=== PATIENT | female | born 1980 | race Caucasian/White ===

== ENCOUNTER 2019-07-30 13:03 | Emergency (ER) | payer OTHER, SELFPAY ==
[2019-07-30 13:05] VITALS: BP 143/77; PULSE 80; RESP 19; TEMP 36.6; O2SAT 100; BMI 28.0
--- NOTE | 2019-07-30 13:46 | HMH.EDUTC ---
[facility] Disposition Clinical Impression: Laceration Disposition: Home, Self-Care Condition on Discharge: Good Instructions: How to Care for a Laceration After Repair, DI for Laceration Repair -- Simple, DI for Laceration Repair -- Finger Additional Instructions: You have required stitches today. Please read the following instructions so you know how to care for them: 1. Keep wound area dry for the first 24 hours. 2 May clean gently with mild soap and water, after 48 hours to prevent crusting over suture knots. 3. You may shower if your provider gives permission but do not take a bath until the skin is healed.. 4. Never leave a wet dressing or Band-Aid on your stitches as this allows bacteria to reach the area and may cause infection. Band-aids can cause the wound to sweat and not recommended to wear for long periods of time Watch for signs of infection: Increasing redness, tenderness or warmth around the suture site Unusual swelling around the site Appearance of pus around each suture or any red streaks Fever If you develop any of the above signs or symptoms of infection, Follow up with Family Physician immediately 5. Suture removal in __10-14__days 6. Return to [facility] or follow up with family doctor for removal. This can be done by any medical provider during regular hours on Thursday through Thursday, by appointment. Referrals: Livia Mathis PA [Primary Care Provider] - As needed Time of Disposition: 13:51 Medical Decision Making - Onel Inquiry Pt receiving controlled substance: No Onel was queried for this patient: No Vital Signs: 07/30/19 13:05 07/30/19 14:07 Temperature 97.8 F 97.8 F Temperature Source Oral Oral Pulse Rate 80 Pulse Rate [Radial] 80 Respiratory Rate 19 19 Blood Pressure 143/77 H Blood Pressure [Right Arm] 143/77 H Blood Pressure Mean [Right Arm] 99 Blood Pressure Source Automatic Cuff Blood Pressure Source [Right Arm] Automatic Cuff Blood Pressure Position Sitting Blood Pressure Position [Right Arm] Sitting 02 Sat by Pulse Oximetry 100 Oxygen Delivery Method Room Air Room Air Orders (Tests/Meds): ED MEDICATIONS Discontinued Medications Generic Name Dose Route Start Last Admin Trade Name Freq PRN Reason Stop Dose Admin Tetanus/Reduced Diphtheria/Acell Pertussis 0.5 ml 07/30/19 13:45 07/30/19 13:55 Adacel Tdap 0.5ml Syringe IM 07/30/19 13:46 0.5 ml .ONCE ONE Administration [facility] HPI - General Stated complaint: AO 07/30/19 12:30 laceration left index finger Time Seen by Provider: 07/30/19 13:05 Mode of Arrival: Ambulatory Source of Information: Patient Limitations: No Limitations Description of Symptoms (Recalled from Triage Doc. by RN): cut finger HEENT Symptoms (Recalled from RN notes): No Resp Symptoms (Recalled from RN notes): No Skin Symptoms (Recalled from RN notes): Yes MS Symptoms (Recalled from RN notes): No Functional Status (Recalled from RN notes): wnl - History of Present Illness Provider Complaint: Patient states that she was opening a can a tuna when she accidently cut her left index finger with the sharp metal State that it was bleeding a lot and she was finally able to get the bleeding stopped and realized that she may need a few stiches to close it - Related Data Previous Rx's Medication Instructions Recorded rikvrsijoseswxh-oosugqonmixtytp-JH 5 - 10 ml PO Q6H PRN #180 ml 04/20/18 2 mg-30 mg-10 mg/5 mL oral syrup levofloxacin 500 mg tablet 500 mg PO Q24H 10 Days #10 tab 04/20/18 prednisone 20 mg tablet 20 mg PO BID #10 tab 04/20/18 ondansetron 8 mg disintegrating 8 mg PO Q8H PRN 5 Days #30 tab 01/25/19 tablet Allergies Allergy/AdvReac Type Severity Reaction Status Date / Time penicillin V Allergy Unknown UNKNOWN Verified 04/20/18 10:01 REACTION- OK WITH KEFLEX - Worker's Comp Is this a Worker's Comp case?: No [facility] History - Hepatitis A Screen Drug use history?: No High risk sex
[2019-07-30 14:07] VITALS: BP 143/77; PULSE 80; RESP 19; TEMP 36.6; O2SAT 100
== END 2019-07-30 14:07 | disposition home or self-care (01) ==
LOC: UTC 14:44
PROVIDERS: Emergency Provider Nurse Practitioner; PCP Physician Assistant
DX: S61.211A Laceration without foreign body of left index finger without damage to nail, initial encounter (principal); W26.8XXA Contact with other sharp object(s), not elsewhere classified, initial encounter; Y92.010 Kitchen of single-family (private) house as the place of occurrence of the external cause; Z23 Encounter for immunization; Z88.0 Allergy status to penicillin; F17.210 Nicotine dependence, cigarettes, uncomplicated
CPT/HCPCS: 12001; 90471; 90715; 99201

== ENCOUNTER 2019-08-11 18:52 | Emergency (ER) | payer BC, SELFPAY ==
[2019-08-11 19:03] VITALS: BP 132/88; PULSE 84; RESP 16; TEMP 37.2; O2SAT 84; BMI 27.3
--- NOTE | 2019-08-11 19:14 | CT_ITS ---
PROCEDURE: CT ABDOMEN PELVIS W CON CLINICAL INDICATION: LLQ pain Left lower quadrant pain with vomiting, diarrhea, rectal bleeding COMPARISON: No exams were available for comparison TECHNIQUE: IV Contrast: 75ML OPTIRAY 350 Oral Contrast none Axial images obtained with sagittal and coronal reformats. All CT scans at the facility use one or more dose reduction, viz: automated exposure control, ma/kV adjustment per patient size (including targeted exams where dose is matched to indication, i.e. head), or iterative reconstruction technique. FINDINGS: LOWER THORAX: Mild atelectatic changes are present in the left lung base. ABDOMEN & PELVIS: The liver, gallbladder, spleen, adrenal glands, and pancreas have an unremarkable appearance. No renal or ureteral calculi. There is mild prominence of the left renal pelvis. No definite ureteral calculus. No evidence of appendicitis or intestinal obstruction or free air. There is thickening of the descending colon with some minimal stranding of the pericolic fat best seen on series 3, image 80 suggesting mild colitis. The uterus has a somewhat bulky appearance and is retroverted with a Essure device is noted bilaterally. IMPRESSION: Colitis of descending colon Dictated by: Britton Tapia MD 08/12/2019 06:01 Electronically signed by Britton Tapia MD in [place] 08/12/2019 06:01
[2019-08-11 19:21] LABS: Microscopic, Urine URINE MICROSCOPIC (MICROSCOPIC)
[2019-08-11 19:24] LABS: Basophils # 0.1 K/mm3 (0-0.2); Basophils % 0.6 % (0.1-2.0); Eosinophils # 0.2 K/mm3 (0.0-0.4); Eosinophils % 1.7 % (0.1-12.0); Hematocrit 47.2 % (37.0-47.0); Hemoglobin 15.4 g/dL (12.2-16.2); Lymphocytes # 2.2 K/mm3 (0.7-4.5); Lymphocytes % 19.6 % (10-50); Mean Corpuscular HGB Conc 32.7 g/dL (31.8-35.4); Mean Corpuscular Hemoglobin 27.9 pg (27.0-31.2); Mean Corpuscular Volume 85.3 fl (81-99); Monocytes # 0.7 K/mm3 (0.1-1.0); Monocytes % 6.2 % (1.7-9.3); Neutrophils # 8.2 K/mm3 (1.8-7.8); Neutrophils % 72.1 % (37.0-80.0); Platelet Count 406 K/mm3 (142-424); Red Blood Count 5.53 M/mm3 (4.20-5.40); White Blood Count 11.4 K/mm3 (4.8-10.8)
--- NOTE | 2019-08-11 19:26 | HMH.EDABDPAI ---
ED Disposition Condition on Discharge: Good - Critical Care Critical Care Time: No <Robbie Ramirez - Last Filed: 08/11/19 19:41> <Leonardo Fernandez - Last Filed: 08/11/19 20:33> Clinical Impression: Gastroenteritis Abdominal pain Qualifiers: Abdominal location: generalized Qualified Code(s): R10.84 - Generalized abdominal pain Disposition: Home, Self-Care Instructions: DI for Acute Abdomen Referrals: Livia Mathis PA [Primary Care Provider] - Attestation: On 08/11/19, the high probability of a clinically significant, sudden or life threatening deterioration of the following system(s) required my full and direct attention, intervention and personal management. The time I documented below is in addition to time spent performing reported procedures but includes the following listed in this critical care notation. Medical Decision Making - Medical Records Medical records reviewed: Yes: I reviewed the patient's medical records. - Onel Inquiry Pt receiving controlled substance: No - Lab Data Result diagrams: 08/11/19 19:08 08/11/19 19:08 <Robbie Ramirez - Last Filed: 08/11/19 19:41> - Lab Data Lab results reviewed: Yes: I reviewed the patient's lab results. Result diagrams: 08/11/19 19:08 08/11/19 19:08 - CT Data CT Scan: Abdomen, Pelvis Time Received: 20:[address] Reviewed: Yes: I have viewed the radiologist's interpretation Preliminary Findings: Normal/NAD <Leonardo Fernandez - Last Filed: 08/11/19 20:33> Vital Signs: 08/11/19 19:03 08/11/19 20:08 Temperature 98.9 F 98.1 F Temperature Source Oral Oral Pulse Rate [Right] 84 66 Respiratory Rate 16 16 Blood Pressure [Right Arm] 132/88 107/64 L Blood Pressure Mean [Right Arm] 102 78 Blood Pressure Source [Right Arm] Automatic Cuff Blood Pressure Position [Right Arm] Supine 02 Sat by Pulse Oximetry 84 L 99 Oxygen Delivery Method Room Air Room Air - Lab Data Lab Results 08/11/19 19:08: WBC 11.4 H, RBC 5.53 H, Hgb 15.4, Hct 47.2 H, MCV 85.3, MCH 27.9, MCHC 32.7, RDW 14.0, Plt Count 406, MPV 8.0, Neut % (Auto) 72.1, Lymph % (Auto) 19.6, [place] % (Auto) 6.2, Eos % (Auto) 1.7, Baso % (Auto) 0.6, Neut # (Auto) 8.2 H, Lymph # (Auto) 2.2, [place] # (Auto) 0.7, Eos # (Auto) 0.2, Baso # (Auto) 0.1, ESR 8 08/11/19 19:08: Sodium 139, Potassium 3.6, Chloride 102, Carbon Dioxide 29, Anion Gap 11.6, BUN 9, Creatinine 0.70, Estimated Creat Clear 134, Estimated GFR 93, Est GFR ( Amer) 112, Glucose 134 H, Calcium 9.7, Total Bilirubin 0.5, AST 24, ALT 28, Alkaline Phosphatase 62, C-Reactive Protein 4.8 H, Total Protein 7.4, Albumin 4.5, Globulin 2.9, Albumin/Globulin Ratio 1.6, Amylase 84, Lipase 120 08/11/19 19:14: Urine Color Yellow, Urine Appearance Clear, Urine pH 6.0, Ur Specific [place] >= 1.030, Urine Protein Negative, Urine Glucose (UA) Negative, Urine Ketones Negative, Urine Blood 1+, Urine Nitrate Negative, Urine Bilirubin Negative, Urine Urobilinogen 0.2, Ur Leukocyte Esterase Negative, Urine RBC Occasional, Urine WBC Occasional, Ur Squamous Epith Cells Occasional, Urine Bacteria Trace 08/11/19 19:14: Stool Occult Blood Positive A 08/11/19 19:14: Urine HCG, Qual Negative Orders (Tests/Meds): ED MEDICATIONS Generic Name Dose Route Start Last Admin Trade Name Freq PRN Reason Stop Dose Admin Sodium Chloride 1,000 mls @ 999 mls/hr 08/11/19 19:15 08/11/19 19:37 Sod Chlor 0.9% 1000ml Bag IV 08/11/19 20:15 999 mls/hr .Q1H1M RANJIT Administration Sodium Chloride 8 ml 08/11/19 19:14 08/11/19 19:38 Sodium Chloride 0.9% 10ml Vial IV 09/10/19 19:13 8 ml NEEDED PRN Administration dilute pepcid Discontinued Medications Generic Name Dose Route Start Last Admin Trade Name Freq PRN Reason Stop Dose Admin Famotidine 20 mg 05/14/20 19:14 08/11/19 19:38 Pepcid 20mg/2ml Vial IV 08/11/19 19:15 20 mg ONCE ONE Administration Ioversol 75 ml 08/11/19 20:02 08/11/19 20:03 Rad-Optiray 350 100ml Vial
[2019-08-11 19:27] LABS: Chloride 102 mmol/L (98-107)
[2019-08-11 19:28] LABS: Potassium 3.6 mmoL/L (3.5-5.1); Sodium 139 mmol/L (136-145)
[2019-08-11 19:30] LABS: Amylase 84 U/L (30-110); Blood Urea Nitrogen 9 mg/dl (7-17); Creatinine Clearance Estimated 134 mL/min (50-200); Estimated Glomerular Filt Rate 93 ml/min (>60); GFR (African American) 112 ML/MIN (>60)
[2019-08-11 19:31] LABS: Alanine Aminotransferase 28 U/L (12-78); Albumin Level 4.5 g/dl (3.5-5.0); Albumin/Globulin Ratio 1.6 (1.1-1.8); Alkaline Phosphatase 62 U/L (38-126); Anion Gap 11.6 mEq/L (5-15); Aspartate Amino Transferase 24 U/L (14-36); Bilirubin,Total 0.5 mg/dl (0.2-1.3); Calcium 9.7 mg/dl (8.4-10.2); Carbon Dioxide 29 mmol/L (22.0-30.0); Globulin 2.9 g/dL (1.3-3.2); Glucose 134 mg/dl (74-100); Lipase 120 U/L (23-300); Total Protein,Serum 7.4 g/dl (6.3-8.2)
[2019-08-11 19:33] LABS: Occult Blood,Stool Positive (Negative); Urine Pregnancy, HCG Qual. Negative (Negative)
[2019-08-11 19:36] LABS: C-Reactive Protein 4.8 mg/L (0-4)
[2019-08-11 19:36] LABS: Appearance,Urine CLEAR (Clear); Bilirubin,Urine Negative (Negative); Blood, Urine 1+ (Negative); Color,Urine YELLOW (Yellow); Glucose,Urine (UA) Negative (Negative); Ketones,Urine Negative (Negative); Leukocyte Esterase,Urine Negative (Negative); Nitrate,Urine Negative (Negative); Protein,Urine Negative (Negative); Specific Gravity, Urine >= 1.030 (1.005-1.030); Urobilinogen,Urine 0.2 EU/dl (0.2)
[2019-08-11 19:45] LABS: Bacteria,Urine Trace /lpf; RBC,Urine Occasional #/hpf (0-3); Squamous Epithelial Cell,Urine Occasional #/hpf (0-5); WBC,Urine Occasional #/hpf (0-3)
[2019-08-11 19:47] LABS: Erythrocyte Sedimentation Rate 8 mm/hr (0-20)
--- NOTE | 2019-08-11 20:05 | PC.NURSE ---
pt back from ct
[2019-08-11 20:08] VITALS: BP 107/64; PULSE 66; RESP 16; TEMP 36.7; O2SAT 99
[2019-08-11 20:30] VITALS: BP 91/54; PULSE 61; RESP 14; O2SAT 98
[2019-08-11 20:39] VITALS: BP 107/74; PULSE 70; RESP 16; TEMP 36.6; O2SAT 97
[2019-08-11 20:41] VITALS: BP 107/74; PULSE 70; RESP 16; TEMP 36.6; O2SAT 97
[2019-08-12 21:11] LABS: Adenovirus F 40/41, stool Not Detected (NotDetected); Astrovirus Not Detected (NotDetected); Campylobacter Not Detected (NotDetected); Clostridium Difficile A/B, PCR Not Detected (NotDetected); Cryptosporidium Not Detected (NotDetected); Cyclospora Cayetanesis Not Detected (NotDetected); Entamoeba histolytica Not Detected (NotDetected); Enteroaggregative E coli Not Detected (NotDetected); Enteropathogenic E coli Not Detected (NotDetected); Enterotoxigenic E coli Not Detected (NotDetected); Giardia lamblia Not Detected (NotDetected); Norovirus Not Detected (NotDetected); Plesimonas Shigalloides, PCR Not Detected (NotDetected); Rotavirus A Not Detected (NotDetected); Salmonella, PCR Not Detected (NotDetected); Sapovirus Not Detected (NotDetected); Shiga-like toxin E coli Not Detected (NotDetected); Shigella Enterovasive E coli Not Detected (NotDetected); Vibrio Cholerae Not Detected (NotDetected); Vibrio, PCR Not Detected (NotDetected); Yersinia Entercolitica, PCR Not Detected (NotDetected)
== END 2019-08-11 20:45 | disposition home or self-care (01) ==
PROVIDERS: Emergency Medicine; Emergency Provider Family Medicine; PCP Physician Assistant
DX: K52.9 Noninfective gastroenteritis and colitis, unspecified (principal); R10.84 Generalized abdominal pain; F17.210 Nicotine dependence, cigarettes, uncomplicated
CPT/HCPCS: 74177; 80053; 81001; 81025; 82150; 82272; 83690; 85025; 85651; 86140; 87507; 96365; 96375; 99284; G0328; J2405; Q9967

== ENCOUNTER → 2019-08-12 20:59 | Outpatient (CLI) | payer BC, SELFPAY | PROVIDERS: PCP Emergency Medicine; Visit Provider Emergency Medicine | DX: K92.1 Melena (principal) ==

== ENCOUNTER → 2020-01-09 15:11 | Outpatient (CLI) | payer BC, SELFPAY ==
[2020-01-09 16:36] LABS: Amphetamine/Metha Screen,Urine Negative ng/ml (<1000); Benzodiazepines Screen,Urine Negative ng/ml (<200)
[2020-01-09 16:37] LABS: Barbiturates Screen,Urine Negative ng/ml (<200)
[2020-01-09 16:38] LABS: Cannabinoid Screen,Urine Negative ng/ml (<50); Cocaine Screen,Urine Negative ng/ml (<300)
[2020-01-09 16:39] LABS: Methadone Screen,Urine Negative ng/ml (<300)
[2020-01-09 16:40] LABS: Opiate Screen,Urine Negative ng/ml (<300); Phencyclidine Screen,Urine Negative ng/ml (<25)
== END ==
PROVIDERS: Visit Provider Physician Assistant
DX: Z00.00 Encounter for general adult medical examination without abnormal findings (principal)
CPT/HCPCS: 80305

== ENCOUNTER → 2020-01-21 12:53 | Outpatient (CLI) | payer BC, SELFPAY ==
[2020-01-21 23:30] LABS: Adenovirus,PCR Not Detected (NotDetected); Bordetella Pertussis Not Detected (NotDetected); Chlamydophila Pneumoniae, PCR Not Detected (NotDetected); Coronavirus 229E Not Detected (NotDetected); Coronavirus NL63 Not Detected (NotDetected); Coronavirus OC43 Not Detected (NotDetected); Coronovirus HKU1,PCR Not Detected (NotDetected); Human Metapneumovirus Not Detected (NotDetected); Influenza A, PCR Not Detected (NotDetected); Influenza AH1, 2009 Not Detected (NotDetected); Influenza AH1, PCR Not Detected (NotDetected); Influenza AH3,PCR Not Detected (NotDetected); Influenza B, PCR Not Detected (NotDetected); Mycoplasma Pneumoniae, PCR Not Detected (NotDetected); Parainfluenza 1, PCR Not Detected (NotDetected); Parainfluenza 2, PCR Not Detected (NotDetected); Parainfluenza 3, PCR Not Detected (NotDetected); Parainfluenza 4, PCR Not Detected (NotDetected); Respiratory Syncytial Virus Not Detected (NotDetected); Rhinovirus/Enterovirus Not Detected (NotDetected)
[2020-01-22 02:42] LABS: Coronavirus 19, PCR Detected (NotDetected)
== END ==
PROVIDERS: PCP Physician Assistant; Visit Provider Physician Assistant
DX: Z20.828 Contact with and (suspected) exposure to other viral communicable diseases (principal); U07.1 COVID-19
CPT/HCPCS: 87581; 87633; 87798; U0003

== ENCOUNTER → 2020-07-30 14:50 | Outpatient (CLI) | payer BC, SELFPAY ==
[2020-07-30 17:11] LABS: Hemoglobin A1C 5.5 % (4.0-6.0)
== END ==
PROVIDERS: Visit Provider Physician Assistant
DX: R73.09 Other abnormal glucose (principal)
CPT/HCPCS: 83036

== ENCOUNTER 2020-08-20 08:30 | Emergency (ER) | payer BC, SELFPAY ==
[2020-08-20 08:30] VITALS: BP 140/96; PULSE 82; RESP 18; TEMP 36.5; O2SAT 97; BMI 26.6
--- NOTE | 2020-08-20 08:39 | CT_ITS ---
PROCEDURE: CT ABDOMEN PELVIS WO CON CLINICAL INDICATION: flank pain Right flank pain COMPARISON: CT CT ABDOMEN PELVIS W CON from 08/11/2019 TECHNIQUE: Axial images obtained with sagittal and coronal reformats. All CT scans at the facility use one or more dose reduction, viz: automated exposure control, ma/kV adjustment per patient size (including targeted exams where dose is matched to indication, i.e. head), or iterative reconstruction technique. FINDINGS: LOWER THORAX: No acute finding ABDOMEN & PELVIS: The liver, spleen, adrenal glands, and pancreas have an unremarkable unenhanced appearance. No radiopaque gallstones. No renal calculi are evident. A small calcific density is present in the left aspect of the urinary bladder measuring approximately 3 mm. This may be due to a recently passed ureteral stone. There are left parapelvic renal cysts present. No intestinal obstruction or free air. No evidence of appendicitis. There is a tiny umbilical hernia containing fat. There are few colonic diverticula but no evidence of diverticulitis. Bilateral Essure devices are present. The uterus is retroverted. No acute bony findings. There are few scattered small mesenteric lymph nodes which are nonspecific. IMPRESSION: 3 mm stone is present in the left aspect of the urinary bladder and may be related to recently passed stone. No ureteral calculi or hydronephrosis apparent. Dictated by: Britton Tapia MD 08/20/2020 09:24 Britton Tapia MD in [place] 08/20/2020 09:24
--- NOTE | 2020-08-20 08:47 | PC.NURSE ---
pt going to rad.
[2020-08-20 08:50] LABS: Basophils # 0.1 K/mm3 (0-0.2); Basophils % 1.2 % (0.1-2.0); Eosinophils # 0.6 K/mm3 (0.0-0.4); Eosinophils % 6.9 % (0.1-12.0); Hematocrit 42.9 % (37.0-47.0); Hemoglobin 14.3 g/dL (12.2-16.2); Lymphocytes # 2.5 K/mm3 (0.7-4.5); Mean Corpuscular HGB Conc 33.4 g/dL (31.8-35.4); Mean Platelet Volume 8.3 fl (7.4-10.4); Monocytes # 0.5 K/mm3 (0.1-1.0); Neutrophils # 4.4 K/mm3 (1.8-7.8); Platelet Count 377 K/mm3 (142-424); Red Cell Distribution Width 14.3 % (11.5-17.5); White Blood Count 8.1 K/mm3 (4.8-10.8)
[2020-08-20 08:51] LABS: Chloride 107 mmol/L (98-107); Potassium 4.3 mmoL/L (3.5-5.1); Sodium 139 mmol/L (136-145)
[2020-08-20 08:53] LABS: Blood Urea Nitrogen 14 mg/dl (7-17); Creatinine Clearance Estimated 150 mL/min (50-200); Estimated Glomerular Filt Rate 110 ml/min (>60); GFR (African American) 133 ML/MIN (>60)
[2020-08-20 08:54] LABS: Alanine Aminotransferase 20 U/L (12-78); Albumin Level 4.4 g/dl (3.5-5.0); Albumin/Globulin Ratio 1.6 (1.1-1.8); Alkaline Phosphatase 70 U/L (38-126); Anion Gap 12.3 mEq/L (5-15); Aspartate Amino Transferase 30 U/L (14-36); Bilirubin,Total 0.6 mg/dl (0.2-1.3); Calcium 9.1 mg/dl (8.4-10.2); Carbon Dioxide 24 mmol/L (22.0-30.0); Globulin 2.7 g/dL (1.3-3.2); Glucose 186 mg/dl (74-100); Lipase 126 U/L (23-300); Total Protein,Serum 7.1 g/dl (6.3-8.2)
--- NOTE | 2020-08-20 09:07 | PC.NURSE ---
pt returning from rad. Pt taken to restroom at this time.
[2020-08-20 09:11] VITALS: BP 124/78; PULSE 68; O2SAT 99
[2020-08-20 09:15] VITALS: BP 122/84; PULSE 70; RESP 18; O2SAT 100
[2020-08-20 09:17] LABS: Microscopic, Urine URINE MICROSCOPIC (MICROSCOPIC)
[2020-08-20 09:23] LABS: Appearance,Urine CLEAR (Clear); Bilirubin,Urine Negative (Negative); Blood, Urine 3+ (Negative); Color,Urine YELLOW (Yellow); Glucose,Urine (UA) Negative (Negative); Ketones,Urine TRACE (Negative); Leukocyte Esterase,Urine Negative (Negative); Nitrate,Urine Negative (Negative); PH,Urine 6.5 (5.0-8.5); Protein,Urine Negative (Negative); Specific Gravity, Urine 1.025 (1.005-1.030); Urobilinogen,Urine 0.2 EU/dl (0.2)
[2020-08-20 09:30] VITALS: BP 118/89; PULSE 71; RESP 18; O2SAT 99
--- NOTE | 2020-08-20 09:31 | HMH.EDGENADL ---
ED Disposition Clinical Impression: Kidney stone Disposition: Home, Self-Care Condition on Discharge: Good Instructions: DI for Kidney Stones Prescriptions: Hydrocod/Acet 5/325 mg [[place] 5/325mg tablet] 1 tab PO Q6HP PRN #5 tab PRN Reason: Moderate Pain Transmission Status: Sent to [facility] Tamsulosin HCl [Flomax 0.4mg capsule] 0.4 mg PO HS #5 cap Transmission Status: Pending to [facility] Ondansetron [Zofran 4mg ODT] 4 mg PO BIDP PRN #10 tab PRN Reason: Nausea Transmission Status: Pending to [facility] Referrals: Livia Mathis PA [Primary Care Provider] - - Critical Care Critical Care Time: No Attestation: On 08/20/20, the high probability of a clinically significant, sudden or life threatening deterioration of the following system(s) required my full and direct attention, intervention and personal management. The time I documented below is in addition to time spent performing reported procedures but includes the following listed in this critical care notation. Medical Decision Making - Medical Records Medical records reviewed: Yes: I reviewed the patient's medical records. - Onel Inquiry Pt receiving controlled substance: Yes Onel was queried for this patient: No Reason not queried -: Emergent pt cond-no time Risks and benefits of using a controlled substance: were discussed with pt by me Vital Signs: 08/20/20 08:30 08/20/20 09:11 08/20/20 09:15 Temperature 97.7 F Temperature Source Oral Pulse Rate 68 70 Pulse Rate [Right Radial] 82 Respiratory Rate 18 18 Blood Pressure 124/78 122/84 Blood Pressure [Right Arm] 140/96 H Blood Pressure Mean 96 Blood Pressure Mean [Right Arm] 110 Blood Pressure Source [Right Arm] Automatic Cuff Blood Pressure Position [Right Arm] Sitting 02 Sat by Pulse Oximetry 97 99 100 Oxygen Delivery Method Room Air 08/20/20 09:30 Temperature Temperature Source Pulse Rate 71 Pulse Rate [Right Radial] Respiratory Rate 18 Blood Pressure 118/89 Blood Pressure [Right Arm] Blood Pressure Mean 98 Blood Pressure Mean [Right Arm] Blood Pressure Source [Right Arm] Blood Pressure Position [Right Arm] 02 Sat by Pulse Oximetry 99 Oxygen Delivery Method - Lab Data Lab Results 08/20/20 08:33: WBC 8.1, RBC 5.10, Hgb 14.3, Hct 42.9, MCV 84.0, MCH 28.0, MCHC 33.4, RDW 14.3, Plt Count 377, MPV 8.3, Neut % (Auto) 55.0, Lymph % (Auto) 31.0, [place] % (Auto) 6.0, Eos % (Auto) 6.9, Baso % (Auto) 1.2, Neut # (Auto) 4.4, Lymph # (Auto) 2.5, [place] # (Auto) 0.5, Eos # (Auto) 0.6 H, Baso # (Auto) 0.1 08/20/20 08:33: Sodium 139, Potassium 4.3, Chloride 107, Carbon Dioxide 24, Anion Gap 12.3, BUN 14, Creatinine 0.60, Estimated Creat Clear 150, Estimated GFR 110, Est GFR ( Amer) 133, Glucose 186 H, Calcium 9.1, Total Bilirubin 0.6, AST 30, ALT 20, Alkaline Phosphatase 70, Total Protein 7.1, Albumin 4.4, Globulin 2.7, Albumin/Globulin Ratio 1.6, Lipase 126 08/20/20 09:08: Urine Color Yellow, Urine Appearance Clear, Urine pH 6.5, Ur Specific [place] 1.025, Urine Protein Negative, Urine Glucose (UA) Negative, Urine Ketones Trace, Urine Blood 3+, Urine Nitrate Negative, Urine Bilirubin Negative, Urine Urobilinogen 0.2, Ur Leukocyte Esterase Negative, Urine RBC 10-20, Urine WBC None, Ur Squamous Epith Cells 5-10, Urine Bacteria None Result diagrams: 08/20/20 08:33 08/20/20 08:33 Orders (Tests/Meds): ED MEDICATIONS Discontinued Medications Generic Name Dose Route Start Last Admin Trade Name Freq PRN Reason Stop Dose Admin Sodium Chloride 1,000 mls @ 999 mls/hr 08/20/20 08:45 08/20/20 08:46 Sod Chlor 0.9% 1000ml Bag IV 08/20/20 09:45 999 mls/hr .Q1H1M RANJIT Administration Ketorolac Tromethamine 30 mg 08/20/20 08:39 08/20/20 08:45 Ketorolac 30mg/Ml Vial IV 08/20/20 08:40 30 mg ONCE ONE Administration Morphine Sulfate 4 mg 08/20/20 08:39 08/20/20 08:44 Morphine 4mg/Ml Syringe IV
[2020-08-20 10:16] VITALS: BP 129/81; PULSE 65; RESP 16; TEMP 36.8; O2SAT 99
== END 2020-08-20 10:19 | disposition home or self-care (01) ==
PROVIDERS: Emergency Provider Emergency Medicine; PCP Physician Assistant
DX: N20.0 Calculus of kidney (principal); Z87.442 Personal history of urinary calculi; R03.0 Elevated blood-pressure reading, without diagnosis of hypertension; Z88.0 Allergy status to penicillin
CPT/HCPCS: 74176; 80053; 81001; 83690; 85025; 96365; 96375; 99283; J2405

== ENCOUNTER → 2020-09-11 12:59 | Outpatient (POV) | payer BC, SELFPAY | PROVIDERS: Visit Provider Dermatology | DX: Z00.00 Encounter for general adult medical examination without abnormal findings (principal) ==

== ENCOUNTER → 2021-12-16 07:35 | Outpatient (CLI) | payer BC, SELFPAY | PROVIDERS: PCP Physician Assistant; Visit Provider Physician Assistant | DX: U07.1 COVID-19 (principal); J02.9 Acute pharyngitis, unspecified | CPT/HCPCS: C9803; U0003; U0005 ==

== ENCOUNTER → 2022-05-05 11:15 | Outpatient (CLI) | payer BC, SELFPAY ==
[2022-05-05 12:56] LABS: Thyroid Stimulating Hormone 1.12 uIU/mL (0.465-4.68)
== END ==
LOC: LAB 11:16
PROVIDERS: PCP Physician Assistant; Visit Provider Obstetrics & Gynecology
DX: N92.6 Irregular menstruation, unspecified (principal)
CPT/HCPCS: 36415; 84443

== ENCOUNTER → 2022-05-29 14:44 | Outpatient (CLI) | payer BC, SELFPAY ==
--- NOTE | 2022-05-29 14:45 | US_ITS ---
FINAL REPORT TECHNIQUE: Sonographic images of the pelvis were obtained transvaginally. CLINICAL HISTORY: abnormal uterine bleeding FINDINGS: The uterus is retroverted and retroflexed. It measures 7.7 x 5.7 x 4.2 cm. The endometrial stripe measures 5 mm which is normal. The myometrium is homogeneous. There are nabothian cysts in the cervix.. The right ovary measures 2.5 x 1.2 x 0.9 cm. It is normal in appearance. The left ovary measures 2.1 x 1.8 x 0.8 cm. It is normal in appearance. Color imaging to the ovaries is within normal limits. There is no free fluid. IMPRESSION: Normal sonographic appearance to the uterus and ovaries for age. Reviewed, Interpreted and Dictated by Sally Dc MD Transcribed by Maureen Gonzalez Authenticated and [facility]
== END ==
LOC: RAD 14:45
PROVIDERS: PCP Physician Assistant; Visit Provider Obstetrics & Gynecology
DX: N93.9 Abnormal uterine and vaginal bleeding, unspecified (principal)
CPT/HCPCS: 76830

== ENCOUNTER → 2022-06-30 10:42 | Outpatient (CLI) | payer BC, SELFPAY ==
[2022-06-30 12:06] LABS: Basophils # 0.1 K/mm3 (0-0.2); Basophils % 1.4 % (0.1-2.0); Eosinophils # 0.3 K/mm3 (0.0-0.4); Eosinophils % 4.5 % (0.1-12.0); Hematocrit 42.5 % (37.0-47.0); Hemoglobin 13.5 g/dL (12.2-16.2); Lymphocytes # 1.6 K/mm3 (0.7-4.5); Mean Corpuscular HGB Conc 31.8 g/dL (31.8-35.4); Mean Corpuscular Hemoglobin 27.8 pg (27.0-31.2); Mean Corpuscular Volume 87.7 fl (81-99); Mean Platelet Volume 8.7 fl (7.4-10.4); Monocytes # 0.4 K/mm3 (0.1-1.0); Monocytes % 7.6 % (1.7-9.3); Neutrophils # 3.2 K/mm3 (1.8-7.8); Neutrophils % 57.5 % (37.0-80.0); Platelet Count 364 K/mm3 (142-424); Red Blood Count 4.85 M/mm3 (4.20-5.40); White Blood Count 5.6 K/mm3 (4.8-10.8)
[2022-06-30 12:23] LABS: Alanine Aminotransferase 20 U/L (12-78); Albumin Level 3.7 g/dl (3.5-5.0); Albumin/Globulin Ratio 1.7 (1.1-1.8); Alkaline Phosphatase 49 U/L (38-126); Anion Gap 9.3 mEq/L (5-15); Aspartate Amino Transferase 22 U/L (14-36); Bilirubin,Total 0.4 mg/dl (0.2-1.3); Blood Urea Nitrogen 10 mg/dl (7-17); Calcium 8.5 mg/dl (8.4-10.2); Carbon Dioxide 25 mmol/L (22.0-30.0); Chloride 110 mmol/L (98-107); Estimated Glomerular Filt Rate 109 ml/min (>60); GFR (African American) 132 ML/MIN (>60); Globulin 2.2 g/dL (1.3-3.2); Glucose 86 mg/dl (74-100); Potassium 4.3 mmoL/L (3.5-5.1); Sodium 140 mmol/L (136-145); Total Protein,Serum 5.9 g/dl (6.3-8.2)
[2022-06-30 13:02] LABS: HCG,Quantitative < 2 mIU/ml (0-5.42)
== END ==
PROVIDERS: PCP Physician Assistant; Visit Provider Obstetrics & Gynecology
DX: Z01.812 Encounter for preprocedural laboratory examination (principal); N92.0 Excessive and frequent menstruation with regular cycle
CPT/HCPCS: 36415; 80053; 84702; 85025

== ENCOUNTER 2022-07-04 07:39 | Day surgery (SDC) | payer BC, SELFPAY ==
[2022-07-02 08:47] VITALS: BMI 26.6
[2022-07-04 08:05] VITALS: BP 100/65; PULSE 68; RESP 18; TEMP 36.6; O2SAT 100
--- NOTE | 2022-07-04 10:52 | EXP.OP.NOTE ---
Date of procedure: 07/04/22 Pre-op Diagnosis:: 1. Menorrhagia 2. Dysmenorrhea 3. Abnormal uterine bleeding 4. History of Essure coil placement for sterilization Post-op Diagnosis:: 1. Menorrhagia 2. Dysmenorrhea 3. Abnormal uterine bleeding 4. History of Essure coil placement for sterilization Procedure performed:: Hysteroscopy, D&C with Myosure, Novasure endometrial ablation Surgeon:: Yahaira Hoyt DO Clay Caster(s):: N/a NEWSPAPER COPY EDITOR:: Bandar Clay Anesthesia: GETA Estimated blood loss (mL): 25 Clinical Note:: Ms Lucille Ordonez is a 42 yo P1001 who presents to [facility] for scheduled procedure. She complains of irregular periods. She has two periods a month every other month. Flow lasts for 5 days. The middle 3 days are very heavy and painful. She admits she is doubled over with a heating pad. She has to change her clothes at least twice a day for bleeding through a super tampon and heavy pad. She admits periods have always been heavy but have gotten worse. She has history of Essure coils for permanent sterilization ~ 2010. She admits she has had to re-upholster her car seat from bleeding through her clothing. TSH 05/05/22 was within normal limits Pelvic ultrasound 05/29/22 was within normal limits Operative findings:: 1. Uterus retroverted, normal size and shape. No adnexal masses palpated 2. On hysteroscopic exam, bilateral tubal ostia visualized but not easily visualized secondary to moderate amount of fluffy endometrial tissue Operative note:: Risks, benefits and alternatives were discussed with the patient. Risks include but are not limited to bleeding, infection, uterine perforation and VTE. Patient voiced understanding and agreed to proceed. She was wheeled back to the operating room and placed under general anesthesia without difficulty. She was placed in dorsal lithotomy position and prepped and draped in the normal sterile fashion. A bimanual exam was performed. A weighted Auvard was placed in the vaginal vault. Single tooth tenaculum was placed on anterior lip of the cervix. Uterus sounded to 8. Sequential Carlos dilators were used to dilate the cervical os. Hysteroscope was tested inserted through the cervix without difficulty. Endometrial cavity was evaluated. See findings above. Pictures were taken. Myosure was inserted through the hysteroscope and Myosure curettage was performed under direct visualization per protocol. Hysteroscope with Myosure was removed. In addition, medium size sharp curette was inserted through the cervix into the uterine cavity. The endometrial cavity was curetted with a systemic [id number] movement of the curette so that all possible endometrium was sampled. All endometrial curettings will be sent to pathology for review. Novasure sure sound was used to obtain uterine length. Uterus measured 5 cm in length and 3.9 cm in cavity width. Novasure deviced was inserted and ablation was performed per protocol at a power of 107 w for 67 seconds. Novasure device was removed. Hysteroscope was reinserted and cavity revealed adequate burn and no uterine perforation. Hysteroscope was removed. Instruments were removed from the vagina. Tenaculum site with small amount of oozing. Silver nitrate stick was applied without resolution. 2-0 Chromic suture was used to ligate bleeding. Excellent hemostasis noted. Patient was awaken from anesthesia without difficulty. She was transported to recovery room in stable condition. Patient will be discharged home when awake and ambulating. She was given postop instructions as well as instructions to follow-up in the office in 2 weeks at which time pathology will be reviewed. Condition: stable Disposition: same day Specimens:: 1. Endometrial curettings Complications:: None
[2022-07-04 11:00] VITALS: BP 112/63; PULSE 78; RESP 16; TEMP 36.3; O2SAT 98
[2022-07-04 11:10] VITALS: BP 113/64; PULSE 75; RESP 18; O2SAT 100
[2022-07-04 11:20] VITALS: BP 114/69; PULSE 75; RESP 17; O2SAT 100
[2022-07-04 11:30] VITALS: BP 112/72; PULSE 74; RESP 16; TEMP 36.8; O2SAT 100
[2022-07-04 13:56] VITALS: TEMP 43
== END 2022-07-04 11:30 | disposition home or self-care (01) ==
PROVIDERS: PCP Physician Assistant; Visit Provider Obstetrics & Gynecology
PROC: (CPT 58563; principal; 2022-07-04 09:15)
DX: N92.0 Excessive and frequent menstruation with regular cycle (principal); N94.6 Dysmenorrhea, unspecified; N93.8 Other specified abnormal uterine and vaginal bleeding; Z97.5 Presence of (intrauterine) contraceptive device; Z79.899 Other long term (current) drug therapy
CPT/HCPCS: 58563; J2405

== ENCOUNTER → 2022-09-18 12:00 | Outpatient (CLI) | payer BC, SELFPAY ==
[2022-09-18 14:05] LABS: Barbiturates Screen,Urine Negative ng/ml (<200)
[2022-09-18 14:06] LABS: Amphetamine/Metha Screen,Urine Negative ng/ml (<1000); Benzodiazepines Screen,Urine Negative ng/ml (<200)
[2022-09-18 14:07] LABS: Cannabinoid Screen,Urine Negative ng/ml (<50); Methadone Screen,Urine Negative ng/ml (<300)
[2022-09-18 14:08] LABS: Cocaine Screen,Urine Negative ng/ml (<300)
[2022-09-18 14:09] LABS: Opiate Screen,Urine Negative ng/ml (<300); Phencyclidine Screen,Urine Negative ng/ml (<25)
== END ==
PROVIDERS: PCP Physician Assistant; Visit Provider Physician Assistant
DX: Z02.1 Encounter for pre-employment examination (principal)
CPT/HCPCS: 80305

== ENCOUNTER → 2023-01-15 15:10 | Outpatient (CLI) | payer BC, SELFPAY ==
[2023-01-19 21:13] LABS: Neisseria gonorrhoeae, NAA Negative (Negative)
== END ==
PROVIDERS: PCP Physician Assistant; Visit Provider Physician Assistant
DX: N39.0 Urinary tract infection, site not specified (principal); R30.0 Dysuria; B96.29 Other Escherichia coli [E. coli] as the cause of diseases classified elsewhere
CPT/HCPCS: 87086; 87491; 87591